=== PATIENT | male | born 1995 | race Hispanic/Latino ===

== ENCOUNTER 2022-09-05 20:50 | Emergency (ER) | payer SELFPAY ==
[~2022-09-05] VITALS: Ht 180.3 cm; Wt 99.8 kg
[2022-09-05] MEDS ORDERED: CIPRODEX OTIC7.5 ML EACH EAR (21:26)
== END 2022-09-05 21:30 | disposition home or self-care (01) ==
LOC: ER 20:55
DX: H60.91 Unspecified otitis externa, right ear (principal); F17.210 Nicotine dependence, cigarettes, uncomplicated
CPT/HCPCS: 99282